=== PATIENT | female | born 1965 | race Two or more races ===

== ENCOUNTER 2017-11-19 10:06 | Emergency (ER) | payer OTHER ==
[~2017-11-19] VITALS: Ht 160 cm; Wt 76.2 kg
[~2017-11-19 10:06] MED LIST: ALDACTONE25 MG; AMARYL PO; APRESOLINE 10MG10 MG; ASA-EC81 MG; BRILINTA60 MG; CARDURA8 MG; CATAPRES0.1 MG; CIPRO500 MG PO; COZAAR25 MG; DIOVAN HCT 320/1 TA1; FORTAMET1000 MG; KETO10TA2 PO; LANTUS SOL100 UNIT/1; LEVAQUIN500 MG; LEVSIN/SL0.125 MG SL; LIPITOR80 MG; METFORMIN HCL500 M1; PHENERGAN25 MG PO; SYNTHROID112 MCG PO; SYNTHROID125 MCG; URIN D.S. TABL1 EACH PO; ZANTAC300 MG PO
== END 2017-11-19 15:38 | disposition home or self-care (01) ==
LOC: ER 10:06
DX: J32.0 Chronic maxillary sinusitis (principal); J06.9 Acute upper respiratory infection, unspecified

== ENCOUNTER 2017-11-30 14:54 | Emergency (ER) | payer OTHER ==
[~2017-11-30] VITALS: Ht 157.5 cm; Wt 72.6 kg
[2017-11-30] MEDS ORDERED: NEURONTIN600 MG (15:37)
== END 2017-11-30 21:29 | disposition home or self-care (01) ==
LOC: ER 14:54
DX: R06.02 Shortness of breath (principal); M94.0 Chondrocostal junction syndrome [Tietze]; J06.9 Acute upper respiratory infection, unspecified; I10 Essential (primary) hypertension